=== PATIENT | female | born 1985 | race Caucasian/White ===

== ENCOUNTER 2017-07-07 17:10 | Emergency (ER) | payer BC ==
[~2017-07-07] VITALS: Ht 167.6 cm; Wt 66.8 kg
[~2017-07-07 17:10] MED LIST: BIRTH CONTROL PILL; MOTRIN 800800 MG/TAB PO; PERCOCET 325 MG1 TA2 PO
[2017-07-07 17:16] VITALS: BP 123/70; TEMP 99.6
[2017-07-07] MEDS ORDERED: PRENATAL PO (18:00)
[2017-07-07 18:06] LABS: CALCIUM 8.8 mg/dL (8.4-10.2); CREATININE, serum 0.49 mg/dL (0.52-1.25); POTASSIUM 3.3 mmol/L (3.4-5.0)
[2017-07-07 19:09] LABS: COLLECTION METHOD CLEAN CATCH
[2017-07-07 19:25] LABS: MUCOUS Present /lpf; PH 6 (5-8); SQUAMOUS EPITHELIAL 0-2 /hpf; URINE APPEARANCE Clear; URINE BACTERIA None Seen /hpf; URINE BILIRUBIN Negative (NEGATIVE); URINE BLOOD Negative (NEGATIVE); URINE COLOR Yellow; URINE GLUCOSE Negative (NEGATIVE); URINE KETONE 1+ (NEGATIVE); URINE LEUKOCYTE ESTERASE Trace (NEGATIVE); URINE NITRATE Negative (NEGATIVE); URINE PROTEIN(semi-quant) Negative (NEGATIVE); URINE RBC 0-2 /hpf; URINE UROBILINOGEN Negative (NEGATIVE)
[2017-07-07] MEDS ORDERED: MACROBID 1100 MG/CAP PO (20:05)
[2017-07-07] MEDS ORDERED: ZOFRAN ODT4 MG PO (20:05)
[2017-07-07 20:16] VITALS: PULSE 98
== END 2017-07-07 20:17 | disposition home or self-care (01) ==
LOC: COL.ER 17:10
PROVIDERS: Emergency Medicine
DX: O21.9 Vomiting of pregnancy, unspecified (principal); O99.89 Other specified diseases and conditions complicating pregnancy, childbirth and the puerperium; O23.42 Unspecified infection of urinary tract in pregnancy, second trimester; R19.7 Diarrhea, unspecified; Z3A.18 18 weeks gestation of pregnancy
CPT/HCPCS: J2405; J7030

== ENCOUNTER 2017-09-05 11:55 | Outpatient (CLI) | payer BC ==
[~2017-09-05 11:55] MED LIST changes: +MACROBID 1100 MG/CAP PO; +PRENATAL PO; +ZOFRAN ODT4 MG PO
[2017-09-05 12:16] VITALS: BP 118/81; PULSE 99; TEMP 97.8
[2017-09-05 12:45] VITALS: BP 90/44; PULSE 93
== END 2017-09-05 13:00 | disposition short-term general hospital (02) ==
LOC: LDRO 11:55
DX: O30.032 Twin pregnancy, monochorionic/diamniotic, second trimester (principal); O42.912 Preterm premature rupture of membranes, unspecified as to length of time between rupture and onset of labor, second trimester; Z3A.26 26 weeks gestation of pregnancy
CPT/HCPCS: J0690; J0702; J3475